=== PATIENT | female | born 1980 | race Caucasian/White ===

== ENCOUNTER 2016-08-14 17:41 | Emergency (ER) | payer OTHER | END 2016-08-14 18:55 | disposition home or self-care (01) | LOC: FER 17:41 | DX: F41.1 Generalized anxiety disorder (principal); F32.9 Major depressive disorder, single episode, unspecified; F17.210 Nicotine dependence, cigarettes, uncomplicated; Z88.0 Allergy status to penicillin | CPT/HCPCS: 99283 ==

== ENCOUNTER 2020-11-21 14:58 | Emergency (ER) | payer OTHER ==
[~2020-11-21 14:58] MED LIST: FLEXERIL10 MG PO; MEDROL 4MG DOSEP4 MG PO
[2020-11-21 15:51] LABS: BILIRUBIN NEGATIVE (NEGATIVE); BLOOD TRACE-INTACT Ery/uL (NEGATIVE); CLARITY CLEAR (CLEAR); COLOR YELLOW (YELLOW); GLUCOSE (U) NORMAL (NORMAL); LEUKOCYTES NEGATIVE Leu/uL (NEGATIVE); NITRITE NEGATIVE (NEGATIVE); PROTEIN NEGATIVE (NEGATIVE); SPECIFIC GRAVITY 1.025 (1.001-1.030); UROBILINOGEN 0.2 mg/dL (0.2-1.0); pH 6.5 (5.0-9.0)
[2020-11-21 16:57] LABS: BILIRUBIN NEGATIVE (NEGATIVE); BLOOD TRACE-INTACT Ery/uL (NEGATIVE); CLARITY CLEAR (CLEAR); COLOR YELLOW (YELLOW); GLUCOSE (U) NORMAL (NORMAL); LEUKOCYTES NEGATIVE Leu/uL (NEGATIVE); NITRITE NEGATIVE (NEGATIVE); PROTEIN NEGATIVE (NEGATIVE); SPECIFIC GRAVITY 1.025 (1.001-1.030); UROBILINOGEN 0.2 mg/dL (0.2-1.0)
[2020-11-21 17:03] LABS: SQUAMOUS EPITHELIAL CELLS 20-50
[2020-11-21 17:12] LABS: BASOPHIL 0.4 % (0-2); HCT 39.8 % (37.0-47.0); HGB 13.5 g/dl (12.5-16.0); LYMPHOCYTE 29.3 % (15-48); MCH 32.7 pg (25.0-31.0); MCHC 33.9 g/dL (32.0-36.0); MCV 96.4 fL (78.0-100.0); MPV 9.8 fL (6.0-9.5); NRBC 0; PLT 247 K/uL (150-400); RBC 4.13 M/uL (4.20-5.40); RDW 12.7 % (11.5-14.0); WBC 7.7 K/uL (4.0-10.5)
[2020-11-21 17:35] LABS: AMYLASE 44 U/L (25-115); LIPASE 110 U/L (73-393)
[2020-11-21 17:48] LABS: ALBUMIN 3.5 g/dL (3.4-5.0); BILIRUBIN - TOTAL 0.2 mg/dL (0.2-1.0); BUN/CREAT RATIO (CALC) 24.6 RATIO; CREATININE 0.69 mg/dL (0.51-0.95); GLOBULIN (CALCULATION) 3.1 g/dL; POTASSIUM 4.4 mmol/L (3.5-5.1); TOTAL PROTEIN 6.6 g/dL (6.4-8.2)
== END 2020-11-21 19:47 | disposition home or self-care (01) ==
LOC: FER 14:58
PROVIDERS: Emergency Medicine; Nurse Practitioner Family
DX: R10.12 Left upper quadrant pain (principal); R10.32 Left lower quadrant pain; R11.0 Nausea; F17.210 Nicotine dependence, cigarettes, uncomplicated; Z88.0 Allergy status to penicillin; Z87.442 Personal history of urinary calculi; Z90.710 Acquired absence of both cervix and uterus; Z98.890 Other specified postprocedural states; Z87.19 Personal history of other diseases of the digestive system
CPT/HCPCS: 36415; 80053; 81001; 82150; 83690; 85025; J1885; J7030; Q9967

== ENCOUNTER 2021-03-29 10:42 | Emergency (ER) | payer OTHER ==
[2021-03-29 11:52] LABS: BASOPHIL 0.5 % (0-2); BILIRUBIN NEGATIVE (NEGATIVE); BLOOD NEGATIVE Ery/uL (NEGATIVE); CLARITY CLEAR (CLEAR); COLOR YELLOW (YELLOW); EOSINOPHIL 2.5 % (0-5); GLUCOSE (U) NORMAL (NORMAL); HCT 42.1 % (37.0-47.0); HGB 13.9 g/dl (12.5-16.0); LEUKOCYTES NEGATIVE Leu/uL (NEGATIVE); LYMPHOCYTE 29.3 % (15-48); MCH 31.9 pg (25.0-31.0); MCV 96.6 fL (78.0-100.0); MONOCYTE 10.3 % (0-12); MPV 10.2 fL (6.0-9.5); NEUTROPHIL 57.3 % (41-80); NITRITE NEGATIVE (NEGATIVE); NRBC 0; PLT 285 K/uL (150-400); PROTEIN NEGATIVE (NEGATIVE); RBC 4.36 M/uL (4.20-5.40); RDW 13.1 % (11.5-14.0)
[2021-03-29 12:10] LABS: ALBUMIN 3.7 g/dL (3.4-5.0); BILIRUBIN - TOTAL 0.3 mg/dL (0.2-1.0); BUN/CREAT RATIO (CALC) 25.4 RATIO; CREATININE 0.63 mg/dL (0.51-0.95); POTASSIUM 4.7 mmol/L (3.5-5.1); TOTAL PROTEIN 6.7 g/dL (6.4-8.2)
[2021-03-29] MEDS ORDERED: ZOFRAN4 M1 PO (14:12)
[2021-03-29] MEDS ORDERED: AZITHROMYCIN250 MG PO (14:12)
== END 2021-03-29 14:31 | disposition home or self-care (01) ==
LOC: FER 10:42
PROVIDERS: Internal Medicine
DX: R10.84 Generalized abdominal pain (principal); R11.0 Nausea; J32.9 Chronic sinusitis, unspecified; J44.9 Chronic obstructive pulmonary disease, unspecified; F17.210 Nicotine dependence, cigarettes, uncomplicated; Z88.0 Allergy status to penicillin
CPT/HCPCS: 36415; 80053; 81003; 83690; 84484; 85025; 93005; J1885; J2405